=== PATIENT | female | born 1970 | race Caucasian/White ===

== ENCOUNTER 2018-08-20 15:48 | Emergency (ER) | payer SELFPAY ==
[~2018-08-20] VITALS: Ht 157.5 cm; Wt 102.3 kg
[~2018-08-20 15:48] MED LIST: ADIPEX-P37.5 MG PO; HYDROCHLOROTH12.5 M1 PO; HYDROCODONE-APA1 TAB PO; K-DUR20 MEQ PO; LASIX20 MG PO; PERCOCET 10/3251 TA1 PO; PROPRANOLOL HCL20 MG PO; TOPAMAX50 MG PO
[2018-08-20 16:10] VITALS: Ht 157.5 cm; Wt 102.3 kg
[2018-08-20] MEDS ORDERED: PEPCID AC20 MG PO (16:12)
[2018-08-20 16:46] LABS: BASOPHILS 0.3 % (0-2); EOSINOPHILS 4.5 % (0-7); HEMOGLOBIN 13.2 g/dL (12-16); IMMATURE GRANULOCYTES 0.2 % (0-5); LYMPHOCYTES 26.4 % (15-50); MCH 30.1 pg (26.0-34.0); MCV 91.3 fL (80.0-100.0); MEAN PLATELET VOLUME 9.1 fL (7.4-10.4); MONOCYTES 7.3 % (2-11); NEUTROPHILS 61.3 % (40-80); RBC 4.38 10x6/uL (4.00-5.40); RDW 14.4 % (11.5-14.5); WBC 10.6 10x3/uL (4.8-10.8)
[2018-08-20 16:54] LABS: PLATELET COUNT 335 10x3/uL (130-400)
[2018-08-20 16:59] LABS: ALBUMIN 3.3 g/dL (3.4-5.0); ALKALINE PHOSPHATASE 52 U/L (46-116); ALT (SGPT) 13 U/L (10-68); BILIRUBIN - TOTAL 0.18 mg/dL (0.2-1.3); CALC OSMOLALITY 281 mosm/kg (275-300); CALCIUM 8.2 mg/dL (8.5-10.1); CARBON DIOXIDE 29.1 mmol/L (21.0-32.0); CHLORIDE - SERUM 105 mmol/L (98-107); CREATININE - SERUM 0.7 mg/dL (0.6-1.3); GLUCOSE 96 mg/dL (74-106); POTASSIUM - SERUM 3.7 mmol/L (3.5-5.1); PROTEIN - SERUM 6.8 g/dL (6.4-8.2); SODIUM 142 mmol/L (136-145); UREA NITROGEN 11 mg/dL (7-18); eGFR NON AFRICAN AMERICAN > 90 mL/min (90-120)
[2018-08-20 17:10] LABS: PRO BNP 53 pg/mL (0-125)
[2018-08-20] MEDS ORDERED: FUROSEMIDE20 MG PO (19:17)
[2018-08-20 19:45] VITALS: BP 149/78
== END 2018-08-20 19:45 | disposition home or self-care (01) ==
LOC: D.ER 15:48
PROVIDERS: Family Medicine
DX: R60.0 Localized edema (principal); M79.672 Pain in left foot; M79.671 Pain in right foot

== ENCOUNTER → 2019-07-23 09:26 | Outpatient (CLI) | payer OTHER ==
[2018-08-20 16:10] VITALS: BMI 41.2
[~2019-07-23 09:26] MED LIST changes: +FUROSEMIDE20 MG PO; +PEPCID AC20 MG PO
== END | disposition home or self-care (01) ==
LOC: D.RAD 09:26
PROVIDERS: ATTEND Pain Medicine Interventional Pain Medicine
DX: M47.897 Other spondylosis, lumbosacral region (principal); M54.5 Low back pain; M62.830 Muscle spasm of back; G89.4 Chronic pain syndrome